=== PATIENT | male | born 2000 | race Caucasian/White ===

== ENCOUNTER 2020-08-28 15:43 | Emergency (ER) | payer SELFPAY ==
[2020-08-28 15:47] VITALS: BP 159/97; PULSE 112; RESP 16; TEMP 36.3; O2SAT 95
--- NOTE | 2020-08-28 16:24 | ED.GENADUL_ITS ---
Discharge Plan Disposition Patient Disposition: HOME Condition: Improving Discharge Details Clinical Impression: Chronic recurrent pilonidal cyst Primary Care Provider: Pantera Ojeda ED Provider: Winston Abdalla Home Meds and New Rx's Prescriptions: New sulfamethoxazole-trimethoprim [Bactrim DS] 800-160 mg tablet 1 tab PO BID 7 Days Qty: 14 RF: 0 Discharge Instructions Instructions: Abscess (ED), Abscess Incision and Drainage (DC) Additional Instructions: We will ask care management to arrange an outpatient follow-up for you in surgery clinic. May leave current dressing and packing in place for 48 to 72 hours. Take antibiotics as prescribed. May use an inflatable doughnut to ease pressure and discomfort. May use Tylenol and/or ibuprofen as needed for pain. Return to develop shaking chills, high fever, or any other acute concerns. Medical Decision Making 20-year-old male presents from home. He has had days of superior gluteal cleft swelling, discomfort, foul-smelling discharge. He relates recurrences of same since he was a child playing football. Consistent with pilonidal cyst. Patient consented for procedure. Prepped and draped in standard sterile fashion, anesthetized with lidocaine, incised with 11 blade with release of approximately 6 cc of purulent, foul-smelling fluid. Wicking gauze was placed as packing. Dressed with a padded Mepilex dressing. He has some cellulitic changes of surrounding skin I will place him on a course of Bactrim with culture pending. We will ask toddler caregiver to arrange for outpatient follow-up for him in surgery clinic for 48 to 72-hour recheck and removal of packing. Discussed with him he may require further procedure given his longstanding recurrences. He is stable and appropriate for discharge to home at this time. HPI General Mode of arrival: ambulatory . Date/Time Provider Initiated Documentation: 08/28/20 16:01 . Limitations to Documentation: no limitations . Information obtained by: patient . History of Present Illness 20 year old M presents to the emergency department with the chief complaint of Gluteal cleft abscess, described as moderate, Quality is described as dull and constant, Patient started experiencing this day(s) and it has been constant. No relieving factors improve symptom(s), No exacerbating factors reported . Patient notes denies fever/chills. Patient did receive the following treatments prior to arrival, none Related Data Home Medications Medication Instructions Recorded Confirmed sulfamethoxazole-trimethoprim 1 tab PO BID 7 Days #14 tab 08/28/20 [Bactrim DS] Previous Rx's Medication Instructions Recorded sulfamethoxazole-trimethoprim 1 tab PO BID 7 Days #14 tab 08/28/20 [Bactrim DS] Allergies Allergy/AdvReac Type Severity Reaction Status Date / Time No Known Allergies Allergy Unverified 08/28/20 15:51 General Stated Complaint: RashLesion LISSY: 4 Review of Systems Narrative: 4 systems reviewed and otherwise negative REPLACED BY [facility] Social History Smoking/Tobacco Use Status: Never Smoking risk assessment performed?: Yes Alcohol Intake: current Alcohol Intake frequency: a few times a week Substance use type: does not use Do you feel safe at home: Yes Do you feel safe in your relationship?: Yes Exam Narrative Exam Narrative: GEN: awake, alert, oriented 3. Pleasant, well groomed, interactive. HEAD: Normocephalic, atraumatic ENT: Mucous membranes moist, oropharynx unremarkable, External ear exam unremarkable EYES: PERRL, EOMI NECK: Full ROM, no DRE, no menigismus CHEST/RESP: Nontender, clear to auscultation bilateral, no wheeze/rhonchi/rales CARDIOVASCULAR: RRR, no murmur, rub nilesh. 2+ Rad pulse bilateral ABDOMEN: Soft, nontender, no mass. +Bowel sounds. Superior gluteal cleft has a fluctuant abscess approximately 2 x 3 cm, it is tender, right greater than the left side. EXT: Full ROM, no edema, no rash Neuro: Grossly normal neurologic exam, conversant, interactive. Psych: Speech fluent, thoughts congruent, affect normal Course Vital Signs Vital signs: Vital Signs Temperature 36.3 C L 08/28/20 15:47 Pulse 112 H 08/28/20 15:47 Respiratory Rate 16 08/28/20 15:47 Blood Pressure 159/97 H 08/28/20 15:47 Pulse Oximetry 95 08/28/20 15:47 Temperature 36.3 C L 08/28/20 15:47 Temperature Source Skin 08/28/20 15:47 Pulse 112 H 08/28/20 15:47 Respiratory Rate 16 08/28/20 15:47 Respiratory Effort Non-Labored 08/28/20 15:50 Blood Pressure 159/97 H 08/28/20 15:47 Blood Pressure Position Sitting 08/28/20 15:47 Pulse Oximetry 95 08/28/20 15:47 Oxygen Delivery Method Room Air 08/28/20 15:47 Oxygen Flow Rate 0 08/28/20 15:47 Pain Level 8 08/28/20 15:47 Procedures Abscess I/D Site: Other (gluteal cleft) Local Anesthetic: Lidocaine 1% Amount of anesthesia used (mL): 10 Technique: Incised with #11 Blade Amount of fluid expressed (mL): 6 Packing used?: Plain
[2020-08-28] MEDS: Lidocaine 2% Multi-Dose 50 ML VIAL (17:03)
== END 2020-08-28 17:16 | disposition home or self-care (01) ==
LOC: ER 17:15
PROVIDERS: Emergency Provider Emergency Medicine; PCP Pediatrics
DX: L05.01 Pilonidal cyst with abscess (principal)
CPT/HCPCS: 10081; 87070